=== PATIENT | female | born 1980 | race Hispanic/Latino ===

== ENCOUNTER 2022-03-17 22:31 | Emergency (ER) | payer BC, MEDICAID ==
[~2022-03-17] VITALS: Ht 154.9 cm; Wt 70.8 kg
[2022-03-17 22:33] VITALS: BP 147/98
[2022-03-18] MEDS ORDERED: ALBUHFA IH (01:26)
[2022-03-18] MEDS ORDERED: DOXY-336 PO (01:26)
[2022-03-18] MEDS ORDERED: BENZ-39 PO (01:26)
== END 2022-03-18 01:30 | disposition home or self-care (01) ==
LOC: EDH 22:31
DX: J20.9 Acute bronchitis, unspecified (principal); Z20.822 Contact with and (suspected) exposure to COVID-19; Z90.49 Acquired absence of other specified parts of digestive tract; Z98.890 Other specified postprocedural states
CPT/HCPCS: 99283; 87635; 87880; 87804 ×2; C9803